=== PATIENT | female | born 1960 | race American Indian/Alaskan Native ===

== ENCOUNTER 2018-04-29 09:06 | Outpatient (CLI) | payer BC ==
--- NOTE | 2018-04-29 14:40 | Mammography Report ---
BILATERAL DIGITAL SCREENING MAMMOGRAM with CAD: 04/29/18 09:06:00 CLINICAL: Routine screening. COMPARISON:07/24/16 FINDINGS: The breasts are heterogeneously dense, which may obscure small masses. No mass, architectural distortion or suspicious calcifications. IMPRESSION: No mammographic evidence of malignancy. BI-RADS CATEGORY: 1 - - Negative RECOMMENDATION: Routine mammographic screening in one year. COMMENT: Patient follow-up letters are generated by our [employer] application.
== END 2018-04-29 09:07 | disposition home or self-care (01) ==
LOC: SPVWC 09:06
PROVIDERS: ATTEND Family Medicine
DX: Z12.31 Encounter for screening mammogram for malignant neoplasm of breast (principal)
CPT/HCPCS: 77067

== ENCOUNTER 2019-08-03 08:35 | Outpatient (CLI) | payer BC ==
--- NOTE | 2019-08-04 09:15 | Mammography Report ---
DIGITAL SCREENING MAMMOGRAM WITHOUT CAD, 08/03/2019 INDICATION: Routine screening mammography. TECHNIQUE: Digital bilateral 2D mammography was obtained in the craniocaudal and mediolateral obliq ue projections. For technical reasons, Computer-Aided Detection analysis was not utilized. COMPARISON: 04/29/2018 FINDINGS: Breast Density: The breasts are heterogeneously dense, which may obscure small masses. There is no evidence of dominant mass, suspicious calcifications or architectural distortion in eithe r breast. IMPRESSION: No mammographic evidence of malignancy. Follow up recommendation: Routine yearly BI-RADS Category 1: Negative. A "normal" or negative report should not discourage follow up or biopsy of a clinically significant f inding. A written summary of these findings will be mailed to the patient. The patient will be entered into a mammography reporting system which will generate a reminder letter for the patient's next appointmen t at the appropriate interval. The [employer] recommends yearly mammograms starting at age 40 and continuing as l jace as a woman is in good health. Breast MRI is recommended for women with an approximate 20-25% or greater lifetime risk of breast cancer, including women with a strong family history of breast or ova yamilex cancer or who have been treated for Hodgkin's disease. Signer Name: Moiz Marcelino MD Signed: 08/04/2019 9:11 AM Workstation Name: [id number]
== END 2019-08-03 08:36 | disposition home or self-care (01) ==
LOC: SPVWC 08:35
PROVIDERS: ATTEND Family Medicine
DX: Z12.31 Encounter for screening mammogram for malignant neoplasm of breast (principal)
CPT/HCPCS: 77067

== ENCOUNTER 2020-08-04 08:26 | Outpatient (CLI) | payer BC ==
--- NOTE | 2020-08-04 10:49 | Mammography Report ---
DIGITAL SCREENING MAMMOGRAM WITH CAD, 08/04/2020 INDICATION: Routine screening mammography. SCREENING MAMMOGRAM TECHNIQUE: Digital bilateral 2D mammography was obtained in the craniocaudal and mediolateral obliq ue projections. This examination was interpreted with the benefit of Computer-Aided Detection analysi s. COMPARISON: 08/03/2019 and multiple prior FINDINGS: Breast Density: The breasts are heterogeneously dense, which may obscure small masses. There is no evidence of dominant mass, suspicious calcifications or architectural distortion in eithe r breast. Dense tissue in the mid breast on the left MLO view appears to represent prior density proj ecting differently, particularly as viewed on cc projection and compared with multiple priors. IMPRESSION: No evidence of malignancy Follow up recommendation: Routine yearly BI-RADS Category 1: Negative. A "normal" or negative report should not discourage follow up or biopsy of a clinically significant f inding. A written summary of these findings will be mailed to the patient. The patient will be entered into a mammography reporting system which will generate a reminder letter for the patient's next appointmen t at the appropriate interval. The [employer] recommends yearly mammograms starting at age 40 and continuing as l jace as a woman is in good health. Breast MRI is recommended for women with an approximate 20-25% or greater lifetime risk of breast cancer, including women with a strong family history of breast or ova yamilex cancer or who have been treated for Hodgkin's disease. Signer Name: Juan Luis Frederick MD Signed: 08/04/2020 10:45 AM Workstation Name: [id number]
== END 2020-08-04 08:27 | disposition home or self-care (01) ==
LOC: SPVWC 08:26
PROVIDERS: ATTEND Family Medicine
DX: Z12.31 Encounter for screening mammogram for malignant neoplasm of breast (principal)
CPT/HCPCS: 77067

== ENCOUNTER 2021-08-07 08:15 | Outpatient (CLI) | payer BC ==
--- NOTE | 2021-08-07 09:43 | Mammography Report ---
DIGITAL SCREENING MAMMOGRAM WITH CAD, 08/07/2021 CLINICAL INFORMATION / INDICATION: Routine screening mammography. TECHNIQUE: Digital bilateral 2D mammography was obtained in the craniocaudal and mediolateral obliqu e projections. This examination was interpreted with the benefit of Computer-Aided Detection analysis . COMPARISON: 08/04/2020, 08/03/2019, 04/29/2018 FINDINGS: Breast Density: There are scattered areas of fibroglandular density. No dominant mass, suspicious calcifications, or architectural distortion in either breast. IMPRESSION: No mammographic evidence of malignancy. Follow up recommendation: Routine yearly BI-RADS Category 1: Negative. A "normal" or negative report should not discourage follow up or biopsy of a clinically significant f inding. A written summary of these findings will be mailed to the patient. The patient will be entered into a mammography reporting system which will generate a reminder letter for the patient's next appointmen t at the appropriate interval. The [employer] recommends yearly mammograms starting at age 40 and continuing as l jace as a woman is in good health. Breast MRI is recommended for women with an approximate 20-25% or greater lifetime risk of breast cancer, including women with a strong family history of breast or ova yamilex cancer or who have been treated for Hodgkin's disease. Signer Name: Jessica Kahn MD Signed: 08/07/2021 9:38 AM Workstation Name: [id number]
== END 2021-08-07 08:16 | disposition home or self-care (01) ==
LOC: SPVWC 08:15
PROVIDERS: ATTEND Family Medicine
DX: Z12.31 Encounter for screening mammogram for malignant neoplasm of breast (principal)
CPT/HCPCS: 77067